=== PATIENT | female | born 1975 | race Caucasian/White ===

== ENCOUNTER 2017-11-11 07:38 | Day surgery (SDC) | payer OTHER, SELFPAY ==
[2017-11-10 09:48] VITALS: BMI 40.7
[2017-11-11] VITALS (7 sets, daily range): BP systolic 103–117; BP diastolic 62–70; PULSE 57–95; RESP 18; TEMP 36.4–37.3; O2SAT 97–98
[2017-11-11 08:10] LABS: Urine Pregnancy, HCG Qual. Negative (Negative)
--- NOTE | 2017-11-11 08:20 | P.PCN_ITS ---
[facility] Procedure Note Procedure Note:: Colonoscopy Procedure Report: Colonoscopy Endoscopist: Pernell Cuellar II, MD Referring physician: Marcela Bauman MD Date of Procedure: November 11, 2017 Equipment: Olympus 180 variable stiffness pediatric colonoscope Sedation: MAC sedation Indication: Mrs. Rocha is a 42-year-old female who is here for diagnostic colonoscopy due to iron deficiency anemia. She has started iron infusions. She is being followed by hematology at the [facility]. He has had bone marrow biopsy and have not determined in the etiology of her anemia. She does have some heavier menstruation. The patient's recent blood work from September 17, 2017 showed hemoglobin 7.6 and hematocrit 27.2. She has had a previous splenectomy and her platelet count was 1,531,000. The patient reports no bright red rectal bleeding, hematochezia or melena. She reports no anticoagulation or NSAIDs. She was previously on NSAIDs but quit taking these many months ago. The patient reports no abdominal pain, weight loss change in her bowel habits. She reports that her maternal first cousin had colon cancer around the age of 50. Procedure: Prior to the procedure, a history and physical exam was performed, and patient' s medications and allergies were reviewed. The risks, benefits and alternatives of the sedation and procedure were discussed with the patient. All questions were answered and informed consent was obtained. The patient was brought to the procedure room. Patient identification and proposed procedure were verified by the physician and the nurse. The patient was placed in a left lateral decubitus position and the scope was passed under direct vision. Throughout the procedure, the patient's blood pressure, pulse, and oxygen saturations were monitored continuously. The colonoscopy was accomplished without difficulty. The patient tolerated the procedure well. Findings: On digital rectal examination there was normal rectal tone. There were no external hemorrhoids. The colonoscope was introduced through the anal canal to the rectum and advanced to the cecum. The ileocecal valve and appendiceal orifice were identified. The scope was advanced a short distance into the ileum which appeared grossly normal. The scope was then withdrawn into the colon. The cecum, ascending and transverse colon and mucosa were grossly normal. There were scattered diverticuli throughout the descending and sigmoid colon (LEFT colon). The rectum itself was normal. Upon retroflexion within the rectum there were grade 1 internal hemorrhoids. Impression: 1. Left-sided diverticulosis 2. Grade 1 internal hemorrhoids Plan: If this is deemed to be iron deficiency anemia, it is not a bone marrow or even hematology issue. It is either chronic gastrointestinal or other blood loss versus poor iron absorption. I will obtain Hemoccult testing. If the patient is Hemoccult positive I would consider upper endoscopy and possibly video capsule enteroscopy. Iron is absorbed in the duodenum and celiac disease is a common cause of iron deficiency anemia. I will obtain celiac serologies as well. I will discuss the findings with the patient and family. I would encourage fiber supplementation on a long-term daily maintenance basis.
--- NOTE | 2017-11-11 14:48 | P.PN_ITS ---
[facility] Anesthesia Checklist - Patient Identification Patient Identification: Arm Band - Structural Data Admitted From: Home Planned Operative Procedure/s: colonoscopy Consent for Planned Operative Procedure(s) Verified: Yes Verified Documents: Surgical Consent, History and Physical - NPO Status Verified Time NPO: 00:00 - Additional verifications Anesthesia Reactions: No - Airway Assessment C-Spine Mobility Assessed: Yes (mp2) TMJ Mobility Assessed: Yes - Neurological Assessment Level of Consciousness: Awake, Alert - Anesthesia Plan Anesthesia Risk discussed: Yes Anesthesia Plan: Verified ASA Class: II Anesthesia Type: MAC [facility] Anesthesia HX Medical History: Reports:: Hypertension Denies:: Diabetes Mellitus Type 1, Diabetes Mellitus Type 2, Internal Pacemaker, Lung Disease, Seizures Other Surgeries: No: Pacemaker
[2017-11-12 18:36] LABS: Deamidated Gliadin Abs, IgA 5 units (0-19); Deamidated Gliadin Abs, IgG 2 units (0-19); Tissue Transglutaminase IgA Ab <2 U/mL (0-3); Tissue Transglutaminase IgG Ab <2 U/mL (0-5)
[2017-11-15 06:06] LABS: Endomysial IgA Antibody Negative (Negative)
[2017-11-16 10:24] LABS: Reticulin IgA Antibody Negative titer (Neg:<1:2.5)
== END 2017-11-11 09:39 | disposition home or self-care (01) ==
LOC: OUTP 07:39
PROVIDERS: PCP Family Medicine; Visit Provider Internal Medicine Gastroenterology
PROC: 0DJD8ZZ Inspection of Lower Intestinal Tract, Via Natural or Artificial Opening Endoscopic (ICD-10-PCS; CPT 45378; principal; 2017-11-11 08:30)
DX: D50.9 Iron deficiency anemia, unspecified (principal); K57.30 Diverticulosis of large intestine without perforation or abscess without bleeding; K64.0 First degree hemorrhoids
CPT/HCPCS: 45378; 36415; 81025; 83516; 86255; 86256

== ENCOUNTER → 2018-06-20 14:51 | Outpatient (CLI) | payer OTHER, SELFPAY ==
[2018-06-20 15:44] LABS: Reticulocyte % (Auto) 2.2 % (0.9-3.2)
[2018-06-20 17:00] LABS: Alanine Aminotransferase 49 U/L (12-78); Albumin Level 3.5 gm/dL (3.4-5.0); Albumin/Globulin Ratio 0.8 (1.1-1.8); Alkaline Phosphatase 152 U/L (46-116); Anion Gap 11.5 mEq/L (5-15); Aspartate Amino Transferase 28 U/L (15-37); Bilirubin,Total 0.2 mg/dL (0.2-1.0); Blood Urea Nitrogen 11 mg/dL (7-18); Calcium 9.7 mg/dL (8.5-10.1); Carbon Dioxide 29 mmol/L (21.0-32.0); Chloride 102 mmol/L (98-107); Creatinine,Serum 0.51 mg/dL (0.55-1.02); Estimated Glomerular Filt Rate 134 ml/min (>60); GFR (African American) 162 ML/MIN (>60); Globulin 4.2 gm/dl (1.3-3.2); Glucose 91 mg/dL (74-106); Potassium 4.5 mmoL/L (3.5-5.1); Sodium 138 mmol/L (136-145); Total Protein,Serum 7.7 gm/dL (6.4-8.2)
[2018-06-22 10:15] LABS: Vitamin B12 511 pg/mL (232-1245)
[2018-06-23 09:01] LABS: Antiparietal Cell Antibody 78.6 Units (0.0-20.0)
== END ==
PROVIDERS: PCP Family Medicine; Visit Provider Internal Medicine Gastroenterology
DX: D72.829 Elevated white blood cell count, unspecified (principal); K29.40 Chronic atrophic gastritis without bleeding; D50.9 Iron deficiency anemia, unspecified
CPT/HCPCS: 36415; 80053; 82607; 83516; 85044

== ENCOUNTER → 2018-08-07 13:21 | Outpatient (CLI) | payer OTHER, SELFPAY ==
[2018-08-07 14:35] LABS: Alanine Aminotransferase 42 U/L (12-78); Albumin Level 3.3 gm/dL (3.4-5.0); Albumin/Globulin Ratio 0.8 (1.1-1.8); Alkaline Phosphatase 137 U/L (46-116); Anion Gap 16.3 mEq/L (5-15); Aspartate Amino Transferase 21 U/L (15-37); Bilirubin,Total 0.2 mg/dL (0.2-1.0); Blood Urea Nitrogen 9 mg/dL (7-18); Calcium 8.9 mg/dL (8.5-10.1); Carbon Dioxide 26 mmol/L (21.0-32.0); Chloride 100 mmol/L (98-107); Creatinine,Serum 0.49 mg/dL (0.55-1.02); Estimated Glomerular Filt Rate 139 ml/min (>60); GFR (African American) 168 ML/MIN (>60); Globulin 4.1 gm/dl (1.3-3.2); Potassium 4.3 mmoL/L (3.5-5.1); Sodium 138 mmol/L (136-145); Total Protein,Serum 7.4 gm/dL (6.4-8.2)
[2018-08-07 15:16] LABS: Glucose 106 mg/dL (74-106)
[2018-08-08 10:32] LABS: Vitamin B12 428 pg/mL (232-1245)
[2018-08-09 06:26] LABS: Antiparietal Cell Antibody 74.4 Units (0.0-20.0)
[2018-08-09 14:19] LABS: Saccharomyces cerevisiae, IgA <20.0 Units (0.0-24.9); Saccharomyces cerevisiae, IgG <20.0 Units (0.0-24.9)
== END ==
PROVIDERS: Visit Provider Internal Medicine Gastroenterology
DX: K29.40 Chronic atrophic gastritis without bleeding (principal); D50.9 Iron deficiency anemia, unspecified; D64.9 Anemia, unspecified; D72.829 Elevated white blood cell count, unspecified
CPT/HCPCS: 36415; 80053; 82607; 83516; 85044; 86256; 86671

== ENCOUNTER 2019-10-09 12:42 | Outpatient (CLI) | payer OTHER, SELFPAY ==
[2019-10-09 13:13] VITALS: BP 126/69; PULSE 69; RESP 18; TEMP 36.8; O2SAT 99
[2019-10-09 13:40] VITALS: BP 121/67; PULSE 67; RESP 18; O2SAT 98
== END 2019-10-09 13:40 | disposition home or self-care (01) ==
LOC: INF 12:46
PROVIDERS: PCP Family Medicine; Visit Provider Nurse Practitioner Family
DX: K29.40 Chronic atrophic gastritis without bleeding (principal); D50.9 Iron deficiency anemia, unspecified
CPT/HCPCS: 96374; Q0138

== ENCOUNTER 2019-10-17 12:35 | Outpatient (CLI) | payer OTHER, SELFPAY ==
[2019-10-17 13:06] VITALS: BP 121/73; PULSE 73; RESP 18; O2SAT 98
[2019-10-17 13:28] VITALS: BP 125/70; PULSE 74; RESP 18
== END 2019-10-17 13:28 | disposition home or self-care (01) ==
LOC: INF 12:35
PROVIDERS: Visit Provider Nurse Practitioner Family
DX: K29.40 Chronic atrophic gastritis without bleeding (principal); D50.9 Iron deficiency anemia, unspecified
CPT/HCPCS: 96374; Q0138

== ENCOUNTER 2020-05-13 21:33 | Emergency (ER) | payer OTHER, SELFPAY ==
[2020-05-13 21:40] VITALS: BP 152/82; PULSE 73; RESP 16; TEMP 36.6; O2SAT 99; BMI 31.6
--- NOTE | 2020-05-13 21:46 | CT_ITS ---
PROCEDURE: CT HEAD/BRAIN WO CON CLINICAL INDICATION: possible seizure Seizure with collapse COMPARISON: No exams were available for comparison TECHNIQUE: Axial images obtained. All CT scans at the facility use one or more dose reduction, viz: automated exposure control, ma/kV adjustment per patient size (including targeted exams where dose is matched to indication, i.e. head), or iterative reconstruction technique. FINDINGS: No midline shift, mass effect, intracranial hemorrhage, hydrocephalus, or extra-axial fluid collection is evident. The calvarium has an unremarkable appearance. There is partial opacification of the right mastoid sinus. Mild mucosal thickening left maxillary sinus. IMPRESSION: No acute intracranial finding Right mastoid sinus disease Dictated by: Deo Espinoza MD 05/14/2020 03:48 Deo Espinoza MD in [place] 05/14/2020 03:48
--- NOTE | 2020-05-13 21:52 | ECG_ITS ---
APPROVED REPORT Exam: Resting ECG HR:62 bpm ECG Measurements Heart Rate 62 AXES MS 172 P 10 QRSd 82 QRS 59 QT 386 T 42 QTc 391 <Conclusion> Normal sinus rhythm Low voltage QRS Borderline ECG Electronically signed by : Rajesh Eduardo, 05/15/2020 18:00:15
--- NOTE | 2020-05-13 22:23 | HMH.EDSEIZ ---
ED Disposition Clinical Impression: Generalized seizure Disposition: Home, Self-Care Condition on Discharge: Fair Instructions: DI for Seizure Disorder -- Adult, DI for Seizure (Not Epilepsy/Seizure Disorder), DI for Seizure Disorder -- Child Additional Instructions: Your labs show that you have elevated white blood cell count of 20.7 please note that you had a elevated white blood cell count previously also in November and again the reason for that elevation is unknown; You had a mild hypokalemia today and we have treated you with potassium; CT of the head is normal; I spoke to Dr. Moreira at [facility] neurology and he has advised that the patient does not need to be placed on any anti seizure medications at this time however he advised that she should be advised seizure precautions which include 90 days of no driving as well as advised that she should not be left alone where there is danger to herself or others ; a phone number has been given for follow-up and that is [phone] Referrals: Esther Bauman [Primary Care Provider] - Time of Disposition: 23:54 - Critical Care Critical Care Time: No Attestation: On 05/13/20, the high probability of a clinically significant, sudden or life threatening deterioration of the following system(s) required my full and direct attention, intervention and personal management. The time I documented below is in addition to time spent performing reported procedures but includes the following listed in this critical care notation. Medical Decision Making - Medical Records Medical records reviewed: Yes: I reviewed the patient's medical records. MR Comment: Patient brought in by EMS. with complains that she had a possible seizure. Patient reports she used to have seizures when she was young but hasnt had one in many years, does not take any seizure medication. She had a possible seizure about 6 months ago and was evaluated and again no findings were noted at that time and she is currently not on any seizure medications no other significant medical problems and does not drink alcohol or take drugs on a regular basis.States that she had done some mowing along with other family members and was eating dinner at which time she apparently passed out and was found on the floor; family members think she had a seizure. Exact nature of seizure if she had one is unknown. Patient's labs and they are as follows she is slightly elevated white blood cell count of 20.7 please note that she had a elevated white blood cell count previously also in November and again the reason for that elevation is unknown she has a mild hypokalemia today and we have treated her with potassium CT of the head is normal I spoke to Dr. Moreira at [facility] neurology and he is advised that the patient does not need to be placed on any antiseizure medications at this time however he advised that she should be advised seizure precautions which include 90 days of no driving as well as advised that she should not be left alone where there is danger to herself or others a phone number has been given for follow-up and that is [phone] - Harinder Inquiry Pt receiving controlled substance: No Vital Signs: 05/13/20 21:40 05/13/20 22:24 05/13/20 23:00 Temperature 97.9 F Temperature Source Oral Pulse Rate [Right Brachial] 73 65 60 Respiratory Rate 16 17 Blood Pressure [Right Arm] 152/82 H 116/73 117/70 Blood Pressure Mean [Right Arm] 105 87 85 Blood Pressure Source [Right Arm] Automatic Cuff Manual Cuff/ Doppler Automatic Cuff Blood Pressure Position [Right Arm] Sitting Sitting Sitting 02 Sat by Pulse Oximetry 99 97 96 Oxygen Delivery Method Room Air Room Air Room Air 05/13/20 23:30 Temperature Temperature Source Pulse Rate [Right Brachial] 63 Respiratory Rate 16 Blood Pressure [Right Arm] 114/68 Blood Pressure Mean [Right Arm] 83 Blood Pressure Source [Right Arm] Automatic Cuff Blood Pressure Position [Right Arm] Sitti
[2020-05-13 22:24] VITALS: BP 116/73; PULSE 65; O2SAT 97
[2020-05-13 22:28] LABS: Basophils # 0.2 K/mm3 (0-0.2); Basophils % 0.8 % (0.1-2.0); Eosinophils # 0.9 K/mm3 (0.0-0.4); Eosinophils % 4.5 % (0.1-12.0); Hematocrit 38.7 % (37.0-47.0); Lymphocytes # 3.1 K/mm3 (0.7-4.5); Mean Corpuscular HGB Conc 33.6 g/dL (31.8-35.4); Mean Corpuscular Volume 86.2 fl (81-99); Mean Platelet Volume 7.8 fl (7.4-10.4); Monocytes # 0.9 K/mm3 (0.1-1.0); Monocytes % 4.4 % (1.7-9.3); Neutrophils # 15.5 K/mm3 (1.8-7.8); Neutrophils % 75.3 % (37.0-80.0); Platelet Count 573 K/mm3 (142-424); Red Blood Count 4.49 M/mm3 (4.20-5.40); Red Cell Distribution Width 14.2 % (11.5-17.5); White Blood Count 20.6 K/mm3 (4.8-10.8)
[2020-05-13 22:30] LABS: Chloride 104 mmol/L (98-107); Potassium 3.3 mmoL/L (3.5-5.1); Sodium 141 mmol/L (136-145)
[2020-05-13 22:33] LABS: Alanine Aminotransferase 31 U/L (12-78); Albumin Level 4.1 g/dl (3.5-5.0); Albumin/Globulin Ratio 1.2 (1.1-1.8); Alkaline Phosphatase 126 U/L (38-126); Anion Gap 11.3 mEq/L (5-15); Aspartate Amino Transferase 31 U/L (14-36); Bilirubin,Total 0.2 mg/dl (0.2-1.3); Blood Urea Nitrogen 11 mg/dl (7-17); Carbon Dioxide 29 mmol/L (22.0-30.0); Creatinine Clearance Estimated 157 mL/min (50-200); Estimated Glomerular Filt Rate 110 ml/min (>60); GFR (African American) 133 ML/MIN (>60); Globulin 3.5 g/dL (1.3-3.2); Total Protein,Serum 7.6 g/dl (6.3-8.2)
[2020-05-13 22:34] LABS: Calcium 9.5 mg/dl (8.4-10.2); Glucose 109 mg/dl (74-100)
[2020-05-13 22:36] LABS: MANUAL DIFFERENTIAL MANUAL DIFFERENTIAL (MANUAL DIFF)
[2020-05-13 22:52] LABS: Microscopic, Urine URINE MICROSCOPIC (MICROSCOPIC)
[2020-05-13 22:54] LABS: Appearance,Urine CLEAR (Clear); Bilirubin,Urine Negative (Negative); Blood, Urine 2+ (Negative); Color,Urine YELLOW (Yellow); Glucose,Urine (UA) Negative (Negative); Ketones,Urine TRACE (Negative); Leukocyte Esterase,Urine Negative (Negative); Nitrate,Urine Negative (Negative); Protein,Urine TRACE (Negative); Specific Gravity, Urine 1.025 (1.005-1.030); Urobilinogen,Urine 0.2 EU/dl (0.2)
[2020-05-13 23:00] VITALS: BP 117/70; PULSE 60; RESP 17; O2SAT 96
[2020-05-13 23:01] LABS: Amorphous Sediment,Urine 1+ /lpf; Bacteria,Urine 1+ /lpf; Mucus,Urine 1+ /lpf
[2020-05-13 23:03] LABS: Eosinophils % 3 % (0-3); Lymphocytes % 14 % (10-50); Monocytes % 4 % (2-9); Neutrophils % 79 % (42-76); Platelet Estimate Normal; Total Cells Counted 100
[2020-05-13 23:04] LABS: Stomatocytes 1+
[2020-05-13 23:12] LABS: Barbiturates Screen,Urine Negative ng/ml (<200)
[2020-05-13 23:13] LABS: Amphetamine/Metha Screen,Urine Negative ng/ml (<1000); Benzodiazepines Screen,Urine Negative ng/ml (<200)
[2020-05-13 23:14] LABS: Cannabinoid Screen,Urine Negative ng/ml (<50)
[2020-05-13 23:15] LABS: Cocaine Screen,Urine Negative ng/ml (<300); Methadone Screen,Urine Negative ng/ml (<300)
[2020-05-13 23:16] LABS: Opiate Screen,Urine Negative ng/ml (<300); Phencyclidine Screen,Urine Negative ng/ml (<25)
[2020-05-13 23:30] VITALS: BP 114/68; PULSE 63; RESP 16; O2SAT 97
--- NOTE | 2020-05-13 23:41 | PC.NURSE ---
speaking to Dr Moreira at [facility]
[2020-05-13 23:57] VITALS: BP 107/73; PULSE 67; RESP 16; TEMP 36.6; O2SAT 96
== END 2020-05-14 00:05 | disposition home or self-care (01) ==
PROVIDERS: Family Medicine; Emergency Provider Emergency Medicine; PCP Family Medicine
DX: R56.9 Unspecified convulsions (principal); I10 Essential (primary) hypertension; Z79.899 Other long term (current) drug therapy
CPT/HCPCS: 70450; 80053; 80305; 81001; 85007; 85025; 93005; 96365; 99284

== ENCOUNTER → 2020-05-27 08:51 | Outpatient (CLI) | payer OTHER, SELFPAY ==
--- NOTE | 2020-05-27 08:51 | MR_ITS ---
PROCEDURE: MR HEAD/BRAIN WO/W CON CLINICAL INDICATION: new onset seizures PT STATES SHE HAD A POSSIBLE SEIZURE ON 05/13/20. PT STATES SHE HAS NEVER HAD PREVIOUS EPISODES LIKE THIS. PRIOR CT BRAIN DONE 05/13/20 COMPARISON: CT CT HEAD/BRAIN WO CON from 05/13/2020 TECHNIQUE: Routine multiplanar multi echo sequences are performed without gadolinium enhancement. FINDINGS: No midline shift, mass effect, intracranial hemorrhage, or hydrocephalus is evident. No evidence of acute infarction. The cerebellopontine angles, cerebellum, and brainstem have an unremarkable appearance. No abnormal T2 white matter hyperintensities. The sella is enlarged measuring 15 mm AP and 12 mm transverse having CSF signal intensity with flattening of the pituitary inferiorly. This may only represent a prominent partial empty sella. A cystic lesion however is not excluded and follow-up is suggested. There is no significant mass effect upon the optic chiasm. No abnormal enhancement is apparent. The corpus callosum and craniocervical junction have an unremarkable appearance. No enhancing lesions are evident. There is near complete opacification of the right mastoid sinus with only minimal aeration superiorly. Retention cysts are present in the floor the left maxillary sinus and also in the floor the right maxillary sinus. IMPRESSION: 1. No acute intracranial findings. 2. Enlarged sella with cystic changes. This may only represent a partial empty sella. A cystic lesion however is not completely excluded. Recommend 3 month follow-up with pituitary protocol without and with gadolinium enhancement to confirm short term stability 3. Right mastoid sinus disease Dictated by: Deo Espinoza MD 05/28/2020 12:25 Deo Espinoza MD in [place] 05/28/2020 12:25
== END ==
LOC: RAD 08:51
PROVIDERS: PCP Family Medicine; Visit Provider Specialist
DX: D47.3 Essential (hemorrhagic) thrombocythemia (principal); D72.829 Elevated white blood cell count, unspecified; G40.909 Epilepsy, unspecified, not intractable, without status epilepticus
CPT/HCPCS: 70553; A9576

== ENCOUNTER → 2020-06-12 07:50 | Outpatient (CLI) | payer OTHER, SELFPAY ==
[2020-06-12 10:31] LABS: Basophils # 0.1 K/mm3 (0-0.2); Basophils % 1.1 % (0.1-2.0); Eosinophils # 0.6 K/mm3 (0.0-0.4); Eosinophils % 5.5 % (0.1-12.0); Hematocrit 42.8 % (37.0-47.0); Hemoglobin 13.6 g/dL (12.2-16.2); Lymphocytes # 3.1 K/mm3 (0.7-4.5); Lymphocytes % 26.9 % (10-50); Mean Corpuscular HGB Conc 31.8 g/dL (31.8-35.4); Mean Corpuscular Hemoglobin 28.1 pg (27.0-31.2); Mean Corpuscular Volume 88.2 fl (81-99); Mean Platelet Volume 8.9 fl (7.4-10.4); Monocytes # 0.8 K/mm3 (0.1-1.0); Monocytes % 6.5 % (1.7-9.3); Neutrophils # 6.9 K/mm3 (1.8-7.8); Neutrophils % 59.9 % (37.0-80.0); Platelet Count 759 K/mm3 (142-424); Red Blood Count 4.85 M/mm3 (4.20-5.40); Red Cell Distribution Width 14.5 % (11.5-17.5); White Blood Count 11.5 K/mm3 (4.8-10.8)
[2020-06-12 11:54] LABS: Alanine Aminotransferase 24 U/L (12-78); Albumin Level 4.8 g/dl (3.5-5.0); Albumin/Globulin Ratio 1.3 (1.1-1.8); Alkaline Phosphatase 138 U/L (38-126); Anion Gap 12.6 mEq/L (5-15); Aspartate Amino Transferase 29 U/L (14-36); Bilirubin,Total 0.4 mg/dl (0.2-1.3); Blood Urea Nitrogen 11 mg/dl (7-17); Calcium 10.3 mg/dl (8.4-10.2); Carbon Dioxide 30 mmol/L (22.0-30.0); Chloride 100 mmol/L (98-107); Estimated Glomerular Filt Rate 135 ml/min (>60); GFR (African American) 164 ML/MIN (>60); Globulin 3.6 g/dL (1.3-3.2); Glucose 82 mg/dl (74-100); Potassium 4.6 mmoL/L (3.5-5.1); Sodium 138 mmol/L (136-145); Total Protein,Serum 8.4 g/dl (6.3-8.2)
[2020-06-12 13:01] LABS: Vitamin B12 469 pg/mL (239-931)
[2020-06-12 13:54] LABS: Folate > 20.00 ng/mL
[2020-06-12 16:58] LABS: Iron 125 ug/dL (37-170)
[2020-06-12 17:08] LABS: Total Iron Binding Capacity 448 ug/dL (265-497)
== END ==
LOC: RT 07:52
PROVIDERS: Internal Medicine Medical Oncology; PCP Family Medicine; Visit Provider Nurse Practitioner Family
DX: D72.9 Disorder of white blood cells, unspecified (principal)
CPT/HCPCS: 36415; 80053; 81206; 81270; 82607; 82728; 82746; 83540; 83550; 85025; 93225; 93226

== ENCOUNTER 2020-08-22 12:46 | Emergency (ER) | payer OTHER, SELFPAY ==
[2020-08-22 12:52] VITALS: BP 123/72; PULSE 89; RESP 18; TEMP 36.6; O2SAT 99; BMI 35.0
--- NOTE | 2020-08-22 12:57 | CT_ITS ---
PROCEDURE: CT HEAD/BRAIN WO CON CLINICAL INDICATION: seizure Seizure disorder, near syncope COMPARISON: CT CT HEAD/BRAIN WO CON from 05/13/2020 TECHNIQUE: Axial images obtained. All CT scans at the facility use one or more dose reduction, viz: automated exposure control, ma/kV adjustment per patient size (including targeted exams where dose is matched to indication, i.e. head), or iterative reconstruction technique. FINDINGS: No midline shift, mass effect, intracranial hemorrhage, hydrocephalus, or extra-axial fluid collection is evident. The calvarium has an unremarkable appearance. There is opacified right mastoid sinus no sinus air-fluid level. IMPRESSION: 1. No acute intracranial findings. 2. Right mastoid sinus disease Dictated by: Deo Espinoza MD 08/22/2020 13:21 Deo Espinoza MD in [place] 08/22/2020 13:21
--- NOTE | 2020-08-22 13:04 | PC.NURSE ---
pt to rad
[2020-08-22 13:27] LABS: Basophils # 0.1 K/mm3 (0-0.2); Basophils % 0.7 % (0.1-2.0); Eosinophils # 0.7 K/mm3 (0.0-0.4); Eosinophils % 3.7 % (0.1-12.0); Hematocrit 41.7 % (37.0-47.0); Hemoglobin 12.7 g/dL (12.2-16.2); Lymphocytes # 2.7 K/mm3 (0.7-4.5); Mean Corpuscular HGB Conc 30.5 g/dL (31.8-35.4); Mean Corpuscular Hemoglobin 26.8 pg (27.0-31.2); Mean Corpuscular Volume 88.1 fl (81-99); Mean Platelet Volume 8.4 fl (7.4-10.4); Monocytes % 5.1 % (1.7-9.3); Neutrophils # 14.8 K/mm3 (1.8-7.8); Neutrophils % 76.5 % (37.0-80.0); Platelet Count 791 K/mm3 (142-424); Red Blood Count 4.73 M/mm3 (4.20-5.40); Red Cell Distribution Width 13.6 % (11.5-17.5); White Blood Count 19.4 K/mm3 (4.8-10.8)
[2020-08-22 13:29] LABS: MANUAL DIFFERENTIAL MANUAL DIFFERENTIAL (MANUAL DIFF)
[2020-08-22 13:31] LABS: Chloride 101 mmol/L (98-107); Potassium 4.1 mmoL/L (3.5-5.1); Sodium 137 mmol/L (136-145)
[2020-08-22 13:34] LABS: Alanine Aminotransferase 39 U/L (12-78); Albumin/Globulin Ratio 1.2 (1.1-1.8); Alkaline Phosphatase 135 U/L (38-126); Anion Gap 12.1 mEq/L (5-15); Aspartate Amino Transferase 43 U/L (14-36); Bilirubin,Total 0.3 mg/dl (0.2-1.3); Blood Urea Nitrogen 19 mg/dl (7-17); Carbon Dioxide 28 mmol/L (22.0-30.0); Creatinine Clearance Estimated 114 mL/min (50-200); Estimated Glomerular Filt Rate 68 ml/min (>60); GFR (African American) 83 ML/MIN (>60); Globulin 4.2 g/dL (1.3-3.2); Total Protein,Serum 9.2 g/dl (6.3-8.2)
[2020-08-22 13:35] LABS: Calcium 9.9 mg/dl (8.4-10.2); Glucose 94 mg/dl (74-100)
[2020-08-22 13:36] LABS: Eosinophils % 3 % (0-3); Lymphocytes % 13 % (10-50); Monocytes % 5 % (2-9); Neutrophils % 79 % (42-76); Platelet Estimate Marked Increase; RBC Morphology Normal; Total Cells Counted 100
--- NOTE | 2020-08-22 13:48 | HMH.EDSEIZ ---
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, History of splenectomy Epileptic seizure Qualifiers: Epilepsy type: unspecified Intractability: not intractable Status epilepticus: without status epilepticus Qualified Code(s): G40.909 - Epilepsy, unspecified, not intractable, without status epilepticus Disposition: Home, Self-Care Condition on Discharge: Good Instructions: DI for Seizure Disorder -- Adult Additional Instructions: follow up with pcp for follow up and neuro Referrals: Esther Bauman [Primary Care Provider] - - Critical Care Critical Care Time: No Attestation: On 08/22/20, the high probability of a clinically significant, sudden or life threatening deterioration of the following system(s) required my full and direct attention, intervention and personal management. The time I documented below is in addition to time spent performing reported procedures but includes the following listed in this critical care notation. Medical Decision Making - Medical Records Medical records reviewed: Yes: I reviewed the patient's medical records. - Harinder Inquiry Pt receiving controlled substance: No Vital Signs: 08/22/20 12:52 08/22/20 14:09 Temperature 97.9 F Temperature Source Oral Pulse Rate [Radial] 89 79 Respiratory Rate 18 Blood Pressure [Right Arm] 123/72 104/58 L Blood Pressure Mean [Right Arm] 89 73 Blood Pressure Source [Right Arm] Automatic Cuff Automatic Cuff Blood Pressure Position [Right Arm] Sitting Sitting 02 Sat by Pulse Oximetry 99 99 Oxygen Delivery Method Room Air Room Air - Lab Data Lab results reviewed: Yes: I reviewed the patient's lab results. Lab Results 08/22/20 13:03: WBC 19.4 H, RBC 4.73, Hgb 12.7, Hct 41.7, MCV 88.1, MCH 26.8 L, MCHC 30.5 L, RDW 13.6, Plt Count 791 H, MPV 8.4, Neut % (Auto) 76.5, Lymph % (Auto) 14.0, Hardin % (Auto) 5.1, Eos % (Auto) 3.7, Baso % (Auto) 0.7, Neut # (Auto) 14.8 H, Lymph # (Auto) 2.7, Hardin # (Auto) 1.0, Eos # (Auto) 0.7 H, Baso # (Auto) 0.1, Total Counted 100, Neutrophils % (Manual) 79 H, Lymphocytes % (Manual) 13, Monocytes % (Manual) 5, Eosinophils % (Manual) 3, Platelet Estimate Marked increase, RBC Morphology Normal 08/22/20 13:03: Sodium 137, Potassium 4.1, Chloride 101, Carbon Dioxide 28, Anion Gap 12.1, BUN 19 H, Creatinine 0.90, Estimated Creat Clear 114, Estimated GFR 68, Est GFR ( Amer) 83, Glucose 94, Calcium 9.9, Total Bilirubin 0.3, AST 43 H, ALT 39, Alkaline Phosphatase 135 H, Total Protein 9.2 H, Albumin 5.0, Globulin 4.2 H, Albumin/Globulin Ratio 1.2 08/22/20 13:30: C-Reactive Protein 7.7 H Result diagrams: 08/22/20 13:03 08/22/20 13:03 Orders (Tests/Meds): ORDERS Category Date Time Status ESR [Erythrocyte Sedimentation Rate] Stat Lab 08/22/20 13:03 Received Peripheral Smear Review Routine Lab 08/22/20 14:10 Ordered Urinalysis and Microscopic Stat Lab 08/22/20 13:56 Received - CT Data CT Scan: Head Time Received: 14:[address] Reviewed: Yes: I have viewed the radiologist's interpretation Preliminary Findings: Normal/NAD - Reevaluation(s) Time: 14:16 Reevaluation #1: doing better Medical Decision Narrative: will ask pt to resume meds and call pcp and neuro - has persistent elevated plt and wbc will ask pt to discuss with pcp - Seizures HPI - General Chief Complaint: Seizure Stated Complaint: Syncope Time Seen by Provider: 08/22/20 13:48 Mode of Arrival: Ambulatory Source of Information: Patient, Relative, Medical Record Limitations: No Limitations Description of Symptoms (Recalled from ER Triage Doc. by RN): States that she has not taken her seizure medication in a couple of days because she just forgot. Thinks she had a seizure this morning. Having trouble with memory and her tongue is numb. - History of Present Illness HPI Narrative: has episodes which are thought to be sz and has stopped her meds sec to side effects but did ok as far as sz complaint: possibl
[2020-08-22 14:09] VITALS: BP 104/58; PULSE 79; O2SAT 99
[2020-08-22 14:16] LABS: C-Reactive Protein 7.7 mg/L (0-4)
[2020-08-22 14:21] LABS: Microscopic, Urine URINE MICROSCOPIC (MICROSCOPIC)
[2020-08-22 14:27] LABS: Erythrocyte Sedimentation Rate 19 mm/hr (0-20)
[2020-08-22 14:27] LABS: Appearance,Urine CLEAR (Clear); Bilirubin,Urine Negative (Negative); Blood, Urine 2+ (Negative); Color,Urine YELLOW (Yellow); Glucose,Urine (UA) Negative (Negative); Ketones,Urine TRACE (Negative); Leukocyte Esterase,Urine TRACE (Negative); Nitrate,Urine Negative (Negative); Protein,Urine Negative (Negative); Urobilinogen,Urine 0.2 EU/dl (0.2)
[2020-08-22 14:32] VITALS: BP 100/63; PULSE 78; RESP 16; TEMP 36.6; O2SAT 98
[2020-08-22 14:36] LABS: WBC,Urine Occasional #/hpf (0-3)
[2020-08-24 14:30] LABS: Peripheral Smear Review Scanned Result
== END 2020-08-22 14:33 | disposition home or self-care (01) ==
PROVIDERS: Emergency Provider Emergency Medicine; PCP Family Medicine
DX: D47.3 Essential (hemorrhagic) thrombocythemia (principal); R55 Syncope and collapse; Z90.81 Acquired absence of spleen; I10 Essential (primary) hypertension; G40.909 Epilepsy, unspecified, not intractable, without status epilepticus; F17.210 Nicotine dependence, cigarettes, uncomplicated
CPT/HCPCS: 70450; 80053; 81001; 85007; 85025; 85651; 86140; 99283

== ENCOUNTER → 2020-09-16 08:33 | Outpatient (CLI) | payer BC, SELFPAY ==
--- NOTE | 2020-09-16 08:33 | MR_ITS ---
PROCEDURE: MR HEAD/BRAIN WO/W CON CLINICAL INDICATION: abnormal MRI Brain 3 month follow-up mri, seizures. 18ML PROHANCE INJECTED LOT:[id number] EXP:NOV 2022 COMPARISON: MR MR HEAD/BRAIN WO/W CON from 05/27/2020 TECHNIQUE: Routine multiplanar multi echo sequences are performed without and with gadolinium enhancement with pituitary protocol with dynamic post enhanced images thin-section.. FINDINGS: No midline shift or mass effect is evident. No evidence of acute infarction. No enhancing lesions are evident. The cerebellopontine angle, cerebellum, and brainstem have an unremarkable appearance. The pituitary fossa is once again noted to be enlarged. There is a question of a cystic lesion of the pituitary. Dynamic post enhanced images are performed by thin sections of the pituitary fossa the pituitary stalk is not deviated. The pituitary fossa is prominent but there is no abnormal enhancement that would indicate an underlying cystic lesion. No enhancing lesions are apparent. Pituitary tissue is effaced along the inferior aspect of the pituitary fossa. There is right mastoid sinus effusion. There are small retention cyst of the maxillary sinuses. IMPRESSION: 1. Centrally negative MRI of the brain. 2. Partial empty sella. No pituitary lesion apparent. 3. Right mastoid effusion Dictated by: Deo Espinoza MD 09/17/2020 13:43 Deo Espinoza MD in [place] 09/17/2020 13:43
== END ==
LOC: RAD 08:33
PROVIDERS: PCP Family Medicine; Visit Provider Specialist
DX: G40.909 Epilepsy, unspecified, not intractable, without status epilepticus (principal); E23.7 Disorder of pituitary gland, unspecified; R93.0 Abnormal findings on diagnostic imaging of skull and head, not elsewhere classified
CPT/HCPCS: 70553; A9576

== ENCOUNTER → 2020-11-13 16:22 | Outpatient (CLI) | payer BC, SELFPAY ==
[2020-11-13 16:50] LABS: Basophils # 0.1 K/mm3 (0-0.2); Basophils % 0.8 % (0.1-2.0); Eosinophils # 0.6 K/mm3 (0.0-0.4); Eosinophils % 3.4 % (0.1-12.0); Hematocrit 37.5 % (37.0-47.0); Lymphocytes # 3.8 K/mm3 (0.7-4.5); Lymphocytes % 20.6 % (10-50); Mean Corpuscular HGB Conc 31.9 g/dL (31.8-35.4); Mean Corpuscular Hemoglobin 26.3 pg (27.0-31.2); Mean Corpuscular Volume 82.3 fl (81-99); Mean Platelet Volume 8.5 fl (7.4-10.4); Monocytes # 0.7 K/mm3 (0.1-1.0); Monocytes % 4.1 % (1.7-9.3); Neutrophils % 71.1 % (37.0-80.0); Platelet Count 867 K/mm3 (142-424); Red Blood Count 4.56 M/mm3 (4.20-5.40); Red Cell Distribution Width 13.7 % (11.5-17.5); White Blood Count 18.3 K/mm3 (4.8-10.8)
[2020-11-13 16:51] LABS: MANUAL DIFFERENTIAL MANUAL DIFFERENTIAL (MANUAL DIFF)
[2020-11-13 17:14] LABS: Iron 32 ug/dL (37-170)
[2020-11-13 17:24] LABS: Lymphocytes % 32 % (10-50); Monocytes % 8 % (2-9); Neutrophils % 60 % (42-76); Total Cells Counted 100
[2020-11-13 17:25] LABS: Hypochromasia 1+; Platelet Estimate Marked Increase; Total Iron Binding Capacity 482 ug/dL (265-497)
[2020-11-13 17:51] LABS: Ferritin 6.76 ng/ml (6.24-137)
== END ==
PROVIDERS: Visit Provider Nurse Practitioner Family
DX: G25.81 Restless legs syndrome (principal); Z86.2 Personal history of diseases of the blood and blood-forming organs and certain disorders involving the immune mechanism
CPT/HCPCS: 36415; 82728; 83540; 83550; 85007; 85025

== ENCOUNTER 2020-12-10 13:28 | Outpatient (CLI) | payer BC, SELFPAY ==
[2020-12-10 13:55] VITALS: BP 123/72; PULSE 83; RESP 18; TEMP 36.8; O2SAT 100
[2020-12-10 14:30] VITALS: BP 128/72; PULSE 76; RESP 18; O2SAT 99
== END 2020-12-10 14:30 | disposition home or self-care (01) ==
LOC: INF 13:28
PROVIDERS: Visit Provider Internal Medicine Medical Oncology
DX: D50.9 Iron deficiency anemia, unspecified (principal)
CPT/HCPCS: 96365; J1439

== ENCOUNTER → 2020-12-17 13:20 | Outpatient (CLI) | payer BC, SELFPAY ==
[2020-12-17 13:52] VITALS: BP 106/64; PULSE 70; RESP 20; TEMP 36.5; O2SAT 100
[2020-12-17 14:30] VITALS: BP 109/70; PULSE 79; RESP 20; O2SAT 99
== END ==
LOC: INF 13:20
PROVIDERS: Visit Provider Internal Medicine Medical Oncology
DX: D50.9 Iron deficiency anemia, unspecified (principal)
CPT/HCPCS: 96365; J1439

== ENCOUNTER 2021-04-05 11:55 | Emergency (ER) | payer BC, SELFPAY ==
[2021-04-05 12:29] VITALS: BP 111/67; PULSE 85; RESP 18; TEMP 36.6; O2SAT 95; BMI 38.2
--- NOTE | 2021-04-05 12:41 | HMH.EDUTC ---
[facility] Disposition Clinical Impression: Viral syndrome Sinusitis Qualifiers: Sinusitis location: unspecified location Chronicity: acute Recurrence: non-recurrent Qualified Code(s): J01.90 - Acute sinusitis, unspecified Disposition: Home, Self-Care Condition on Discharge: Good Instructions: DI for Viral Syndrome, Preventing the Spread of Coronavirus Discharge Instructions Additional Instructions: Drink plenty of fluids. Take tylenol or ibuprofen for pain or fever. Take the medications as directed. Follow up with your regular doctor. GO TO THE ER FOR ANY WORSENING SYMPTOMS Prescriptions: Ondansetron [Zofran 4mg ODT] 4 mg PO Q8HP PRN #12 tab.rapdis PRN Reason: Nausea Transmission Status: Received by [id number] Azithromycin [Z-Eliseo 250mg Tab*] 250 mg PO UD DOSE PK #6 tab Transmission Status: Received by [id number] Referrals: Esther Bauman [Primary Care Provider] - Forms: Work/School Release Time of Disposition: 13:08 Medical Decision Making - Medical Records Medical records reviewed: No: I reviewed the patient's medical records. - Harinder Inquiry Pt receiving controlled substance: No Vital Signs: 04/05/21 12:29 04/05/21 13:45 Temperature 97.9 F 0 F L Temperature Source Oral Pulse Rate 0 L Pulse Rate [Right Radial] 85 Respiratory Rate 18 0 L Blood Pressure 000/00 L Blood Pressure [Right Arm] 111/67 Blood Pressure Mean [Right Arm] 81 Blood Pressure Source [Right Arm] Automatic Cuff Blood Pressure Position [Right Arm] Sitting 02 Sat by Pulse Oximetry 95 Oxygen Delivery Method Room Air - Lab Data Lab results reviewed: Yes: I reviewed the patient's lab results. [facility] HPI - General Stated complaint: congestion, fever, aches Time Seen by Provider: 04/05/21 12:41 Mode of Arrival: Ambulatory Source of Information: Patient Limitations: No Limitations Description of Symptoms (Recalled from Triage Doc. by RN): C/O MORGAN, chills, cough, nasal congestion HEENT Symptoms (Recalled from RN notes): Yes (MORGAN, nasal congestion) Resp Symptoms (Recalled from RN notes): Yes (cough) Skin Symptoms (Recalled from RN notes): No MS Symptoms (Recalled from RN notes): No Functional Status (Recalled from RN notes): n/a - History of Present Illness Provider Complaint: She states that for the past 2 days she has had chills, body aches, a scratchy sore throat, sinus congestion. She has been vaccinated against covid around 2 months ago. - Related Data Home Medications Medication Instructions Recorded Confirmed Aspirin [Aspir 81] 81 mg PO DAILY 11/10/17 12/17/20 Folic Acid [Folic Acid 1mg tablet] 1 mg PO DAILY 11/10/17 12/17/20 Sertraline HCl [Zoloft 50mg tablet] 50 mg PO DAILY 11/10/17 12/17/20 triamcinolone acetonide 55 mcg 1 spray INTRANASAL DAILY 06/19/20 12/17/20 nasal spray aerosol valsartan 320 1 tab PO DAILY tab 07/17/20 12/17/20 mg-hydrochlorothiazide 12.5 mg tablet levETIRAcetam [Levetiracetam] 1,000 mg PO BID 12/17/20 12/17/20 Previous Rx's Medication Instructions Recorded Azithromycin [Z-Eliseo 250mg Tab*] 250 mg PO UD DOSE PK #6 tab 04/05/21 Ondansetron [Zofran 4mg ODT] 4 mg PO Q8HP PRN #12 tab.rapdis 04/05/21 Allergies Allergy/AdvReac Type Severity Reaction Status Date / Time No Known Allergies Allergy Verified 12/04/20 09:32 - Worker's Comp Is this a Worker's Comp case?: No H History - Hepatitis A Screen Drug use history?: No High risk sexual behaviors?: No History of sexually transmitted infection?: No Currently employed?: No Childcare worker?: No Do you have indoor plumbing?: Yes Do you have electricity?: Yes Attestation statement:: This patient has been screened for Hepatitis A risk factors. I have reviewed the patient's past medical history: Yes Medical History: Reports:: Depression, Hypertension, Migraine, Seizures Denies:: Cancer, Diabetes Mellitus Type 1, Diabetes Mellitus Type 2, Internal Pacemaker, Dory
[2021-04-05 13:45] VITALS: BP 000/00; PULSE 0; RESP 0; TEMP -17.7; TEMP 0
--- NOTE | 2021-04-06 09:13 | PC.NURSE ---
PT NOTIFIED OF POSITIVE COVID TEST RESULTS
[2021-04-08 13:15] LABS: UTC Strep Screen (Rapid) Negative (Negative)
== END 2021-04-05 13:45 | disposition home or self-care (01) ==
PROVIDERS: Emergency Provider Nurse Practitioner Family; PCP Family Medicine
DX: U07.1 COVID-19 (principal); B34.9 Viral infection, unspecified; J01.90 Acute sinusitis, unspecified; I10 Essential (primary) hypertension; F33.1 Major depressive disorder, recurrent, moderate; G43.709 Chronic migraine without aura, not intractable, without status migrainosus
CPT/HCPCS: 87880; 99203; G0463; U0003

== ENCOUNTER 2023-08-11 07:46 | Outpatient (CLI) | payer OTHER, SELFPAY ==
[2023-08-11 08:21] VITALS: BP 120/68; PULSE 82; RESP 18; TEMP 36.6; O2SAT 98
[2023-08-11 09:00] VITALS: BP 108/54; PULSE 79; RESP 18
== END 2023-08-11 09:00 | disposition home or self-care (01) ==
LOC: INF 07:46
PROVIDERS: PCP Family Medicine; Visit Provider Internal Medicine Medical Oncology
DX: D50.9 Iron deficiency anemia, unspecified (principal); T45.4X5A Adverse effect of iron and its compounds, initial encounter
CPT/HCPCS: 96365; J1756

== ENCOUNTER 2023-08-18 07:58 | Outpatient (CLI) | payer OTHER, SELFPAY ==
[2023-08-18 08:20] VITALS: BP 124/64; PULSE 79; RESP 18; O2SAT 99
[2023-08-18 09:00] VITALS: BP 123/83; PULSE 79; RESP 18; O2SAT 100
== END 2023-08-18 09:00 | disposition home or self-care (01) ==
LOC: INF 07:58
PROVIDERS: PCP Family Medicine; Visit Provider Internal Medicine Medical Oncology
DX: D50.0 Iron deficiency anemia secondary to blood loss (chronic) (principal)
CPT/HCPCS: 96365; J1756

== ENCOUNTER 2023-09-09 07:43 | Outpatient (CLI) | payer SELFPAY ==
[2023-09-09 08:25] VITALS: BP 124/76; PULSE 85; RESP 18; O2SAT 98
[2023-09-09] MEDS: IRON SUCROSE COMPLEX 200 MG in 0.9 % SODIUM CHLORIDE 100 ML 220 MG IV (08:25)
[2023-09-09] MEDS: SODIUM CHLORIDE 0.9% 50ML BAG 50 ML IV (08:25)
[2023-09-09 09:16] VITALS: BP 125/70; PULSE 75; RESP 18; O2SAT 100
== END 2023-09-09 09:16 ==
LOC: INF 07:45
PROVIDERS: PCP Family Medicine; Visit Provider Internal Medicine Medical Oncology
DX: D50.0 Iron deficiency anemia secondary to blood loss (chronic) (principal); T45.4X5A Adverse effect of iron and its compounds, initial encounter; Z79.899 Other long term (current) drug therapy
CPT/HCPCS: 96365; J1756

== ENCOUNTER 2025-07-12 08:02 | Outpatient (CLI) | payer BC, SELFPAY ==
--- OUTSIDE RECORDS SUMMARY | 2025-07-12 08:07 | XMS_ITS | Clinical Summary ---
Author Organization [facility] Address [address] [place] [address] Care Team Providers Care Product Test Specialist Name Role Phone Esther Bauman Primary Care Provider +1 [phone] Allergies No known active allergies Social History Tobacco Use Types Packs/Day Years Used Date Smoking Tobacco: Never Assessed Abuse Screen Answer Date Recorded Unsafe at Home or Work/School Not on file Feels Threatened by Someone? Not on file 07/2023 Does Anyone Keep You from Co ntacting Others or Doint Things Outside the Home? Not on file 06/15/2023 Physical Sign of Abuse Present Not on file 1 Housing Stability Answer Date Recorded Current Living Arrangements Not on file 06/05 Potentially Unsafe Housing Conditions Not on april e 06/15/2023 Family and Community Support Answer Shemar e Recorded Help with Day-to-Day Activities Not on file 06/15/2023 Lonely or Isolated Not on file 06/15/2023 Employment Answer Date Recorded Do you want help finding or keeping work or a thierry b? Not on file 06/15/2023 Disabilities Answer Date Recorded Concentrating, Remembering, or Making Decisions Difficulty Not on file 06/15/2023 Doing Errands Independently Difficulty Not on fi le 06/15/2023 Education Answer Date Recorded Help with school or training? Not on file Preferred Language Not on file 06/15/2023 Comments Unknown Sex and Gender Information Value Date Recorded Sex Assigned at Not on file Legal Sex Female 11:22 AM EST Gender Identity Not on file Sexual Orientation Not on file Last Filed Vital Signs Vital Sign Reading Time Taken Comments Blood Pressure - - Pulse 88 08/15/2016 11:46 AM EST Temperature 37.3 C (99.2 F) 08/15/2016 11:46 AM EST Respiratory Rate 16 08/15/2016 11:46 AM EST Oxygen Saturation 98% 08/15/2016 11:46 AM EST Inhaled Oxygen Concentration - - Weight 111 kg (245 lb) 08/15/2016 11:46 AM EST Height 160 cm (5' 3 ) 08/15/2016 11:46 AM EST Body Mass Index 43.4 08/15/2016 11:46 AM EST Plan of Treatment Upcoming Encounters Date Type Department Care Team (Late st Contact Info) Description 11/13/2025 9:00 AM EDT Office Visit [facility] RHEUMATOLOGY [address] [facility] [address] [place] [address] Jacques Cartwright MD [address] [facility] [address] [place] [address] Health Maintenance Due Date Last Done Comments Annual Gynecologic Pelvic an d Breast Exam 1977 TDAP/TD VACCINES (1 - Tdap) 1996 MAMMOGRAM 2017 COLOGUARD 2022 COLON CANCER SCREENING 5 YEA R SIGMOIDOSCOPY 2022 COLONOSCOPY 2022 [address]ECTAL CANCER SCREENING 2022 CT COLONOGRAPHY 2022 FECAL OCCULT BLOOD TEST 2022 FIT Testing (1 year) 2022 ANNUAL PHYSICAL 07/24/2024 HEPATITIS C SCREENING 07/24/2024 INFLUENZA VACCINE 04/05/2025 Pneumococcal Vaccine 0-49 Aged Out No longer eligible based on patient's age to complete this topic Insurance [facility] PPO Care Teams Product Test Specialist Relationship Specialty Start Date End Date Esther Bauman DO [address] [place] [address] PCP - General Family Medicine 03/15/24
--- OUTSIDE RECORDS SUMMARY | 2025-07-12 08:07 | XMS_ITS | Data Portability ---
Author Organization [facility] Address [address] [facility] [address] [place] [address] Assessment No assessment recorded. Plan of Treatment Reminders Order Date Submit Date Provider Last Modified By Organization Details Last Modified Time Details Appointments None recorded. Lab None recorded. Referral None recorded. Procedures None recorded. Surgeries None recorded. Imaging None recorded. Medication Orders dexamethas one sodium phosphate 10 mg/mL injection solution 2017 018 rvanmetre Not available 8 12:46:16 Patient TargetsNo targets recorded. Patient Instructions Encounter Date Encounter Id Patient Instructions Last Modified By Organization Details Last Modified Time 08/02/2018 [id number] eustachian tube problems: care instructions rvanmetre Not available 08/02/2018 12:46:16 rhinitis: care instructions rvanmetre Not available 08/02/2018 12:46:16 1. Audiogram obtained; reviewed 2. Administer dexamethasone 3. Instruct to use Afrin 4. Discuss placement of right paparella tube; Full risks, complications, and benefits of operative versus non-operative intervention have been thoroughly discussed. Understanding was expressed, informed consent given, and we will proceed with the discussed in office treatment plan. There were no questions for me at the end of the office visit. 5. F/U 4 weeks asalva Not available 08/02/2018 11:56:18 right otalgia an d eustachian tube dysfunction; will try conservative treatment with decadron today and prn afrin along with autoinsufflating ears; follow up in four weeks and if no better then will need to consider myringotomy tube placement rvanmetre Not available 08/02/2018 12:06:59 Reason for Referral None Reported. Results Created Date Observation Date Name Description Value Unit Range Abnormal Flag Note LastModifiedBy Organization Detail LastModifiedTime 08/03/20 18 08/02/2018 audio gram No observ ation record ed. BARCODE Not Available 2017 10:25:52 Result Notes None recorded. Problems No Known Problems Procedures Surgical History Date Name Laterality Status Provider Name and Address Organization Details Recorded Time 8 Tympanogram completed JENNY RIDDLE, AUD [address] [place], [address], [facility] 08/02/2018 11:37:40 8 Audiogram completed JENNY RIDDLE, AUD [address] [place], [address], [facility] 08/02/2018 11:37:39 8 Audiogram completed Julienantonyarlin Crokoa [facility] 08/02/2018 11:51:35 splenectomy completed Aliza Smith [facility] 08/02/2018 11:10:59 Imaging Results None recorded. Procedure Notes None recorded. Medical Equipment None Reported. Allergies No known drug allergies Medications Name Sig Start Date Stop Date Status Note LastModified by Organization Details LastModified Time amoxicillin 500 mg capsule active Not Available Not Available Not Available promethazin e-DM 6.25 mg-15 mg/5 mL oral syrup active Not Available Not Available Not Available fluconazole 150 mg tablet 08/02 completed Not Available Not Available Not Available sumatriptan 50 mg tablet 08/02 completed Not Available Not Available Not Available aspirin 81 mg tablet,alex yed release 08/02 completed Not Available Not Available Not Available dicyclomine 20 mg tablet active Not Available Not Available Not Available ropinirole 0.5 mg tablet 08/02 completed Not Available Not Available Not Available misoprostol 200 mcg tablet active Not Available Not Available Not Available aspirin 81 mg chewable tablet active Not Available Not Available Not Available folic acid 1 mg tablet active Not Available Not Available Not Available montelukast 10 mg tablet Take 1 tablet every day by oral route. active Not Available Not Available No t Available dexamethaso ne sodium phosphate 10 mg/mL injection solution Take 10 mL by injection route. 2017 active Not Available Not Available Not Avai lable fluticasone propionate 50 mcg/actuati on nasal spray,suspe nsion 08/02 completed Not Available Not Available Not Available sertraline 50 mg tablet active Not Available Not Available Not Available dicyclomine 10 mg capsule 08/02 completed Not Available Not Available Not Available amoxicillin 875 mg-potassiu m clavulanate 125 mg tablet 08/02 completed Not Available Not Available Not Available losartan 100 mg-hydrochl orothiazide 12.5 mg tablet active Not Available Not Available Not Available Zoloft active Not Available Not Availa ble Not Available iron active Not Available Not Availa ble Not Available Bentyl active Not Available Not Availa ble Not Available ASA-acetami nophen-sali cyl-caff active Not Available Not Available Not Available MoviPrep 100 gram-7.5 gram-2.691 gram oral powder packet 08/02 completed Not Available Not Available Not Available Rosalba Allergy active Not Available Not Available Not Available Trokendi XR 50 mg capsule, extended release 08/02 completed Not Available Not Available Not Available Trokendi XR 100 mg capsule, extended release 08/02 completed Not Available Not Available Not Available Vitals Date Recorded Body weight Body mass index (BMI) Body height Body temperature Heart rate Systolic And Diastolic Provider Name and Address Organization Details Last Updated DateTime 8 722285. 38 g 42.4 kg/m2 160.02 cm 98.1 [degF] 74 /min 126/78 mm[Hg] Aliza Smith [facility] 8 11:16:28 Social History Question Answer Notes LastModified by Organizat ion Details LastModified Time Tobacco Smoking Status Never Smoker Alizayesy Smith [facility] 08/02/2018 11:10:30 What Was The Date Of Your Most Recent Tobacco Screening? 08/02/2018 Information n ot available 10/23/2019 Sex: Unknown Functional Status Question Answer Note LastModified by Organization D etails LastModified Time What is your level of alcohol consumption? None [email or web address] Information not available 08/02/2018 Mental Status None recorded. Family History Relationship Description Onset Age of this Age Resolved Age Notes LastModified by Organization Details LastModified Time Father Hypertensive disorder [email or web address] Not available 2017 11:10:15 Father Diabetes mellitus [email or web address] Not available 2017 11:10:23 Mother Hypertensive disorder [email or web address] Not available 2017 11:10:15 Medical History Condition Response Depression Y Anesthesia Complications N Anxiety Disorder Y Migraines Y Anemia Y Ulcers Y Diabetes N Bleeding Disorder N Hypertension Y Gynecological HistoryNo gynecological history recorded. Obstetrics History GPAL:G 0 P 0 0 0 0 Past Encounters Encounter ID Performer Location Encounter Start Date Encounter Closed Date Diagnosis/Indication Diagnosis SNOMED-CT Code Diagnosis ICD10 Code Diagnosis IMO Codes Diagnosis Note [id number] TONG PATRICIA [place] [facility] [address] [place] [address] 08/02/2018 10:43:58 08/02/2018 12:14:12 Right conductive hearing loss 5660683715 109 H90.11 Otalgia of right ear 378 7810929 701162 H92.01 Dysfunctio n of eustachian tube 14056254 H69.93 Chronic rhinitis 1195393 6 J31.0 Nasal mucosa dry 8279855 2 J34.89 [id number] ERNESTINA HNAD [place] [facility] [address] [place] [address] 08/02/2018 11:19:05 08/02/2018 11:42:47 Right conductive hearing loss 4718038559 109 H90.11 Otalgia of right ear 682 9191844 224806 H92.01 Health Concerns Section Related Observation LastModified by Organization Detai ls LastModified Time None Recorded Concern Status LastModified by Organization Details LastModified Time None Recorded Advance Directives Directive None Recorded Payers Insurance Date Sequence Insurance Name Policy Number Policy Mcclure Covered Member ID Mcclure Member ID Guarantor Name 07/30/2020 1 TELLO [id number] Rocky Rocha [id number] Rocky Rocha Notes Date Note Type Note Provider Name and Address Organization Details Recorded Time 08/02/2018 text/html Rocky comes in today for an evaluation of her ears. Rocky has been experiencing fluid behind her ears over the past few months. She has been placed on multiple antibiotics with no relief. Rocky is able to auto inflate her ears but she states that they feel full shortly after. Rocky does use flonase regularly. TONG PATRICIA MD [address], [place], [address], [facility] 08/02/2018 12:07:54 OBGyn Episode No OBEpisode recorded.
--- OUTSIDE RECORDS SUMMARY | 2025-07-12 08:07 | XMS_ITS | Encounter Summary ---
Author Organization [facility] Address [address] [place] [id number] Care Team Providers Care Online Journalist Name Role Phone Esther Bauman Primary Care Provider [phone] [phone] Reason for Visit * Reason Onset Date Comments [facility] Encounter Details Date Type Department Care Team (Late st Contact Info) Description 07/24/2024 Telephone [facility] HEMATOLOGY & ONCOLOGY [address] [facility] [address] [place] [address] System, [place] [address] [place] NEW PATIENT Social History Tobacco Use Types Packs/Day Years [...] on file Sexual Orientation Not on file documented as of this encounter Plan of Treatment Upcoming Encounters Date Type Department Care Team (Late st Contact Info) Description 11/13/2025 9:00 AM EDT Office Visit [facility] RHEUMATOLOGY [address] [facility] [address] [place] [address] Jacques Cartwright MD [address] [facility] [address] [place] [address] documented as of this encounter Visit Diagnoses Not on filedocumented in this encounter Care Teams Online Journalist Relationship Specialty Start Date End Date Esther Bauman DO [facility] [place] [address] PCP - General Family Medicine 03/15/24 documented as of this encounter
[2025-07-12 08:30] VITALS: BP 121/72; PULSE 84; RESP 17; O2SAT 99
[2025-07-12] MEDS: IRON SUCROSE COMPLEX 200 MG in 0.9 % SODIUM CHLORIDE 100 ML 220 MG IV (08:30)
[2025-07-12 09:00] VITALS: BP 114/54; PULSE 85; RESP 16
== END 2025-07-12 23:59 | disposition home or self-care (01) ==
LOC: INF 08:04
PROVIDERS: PCP Family Medicine; Visit Provider Internal Medicine Medical Oncology
DX: D50.9 Iron deficiency anemia, unspecified (principal)
CPT/HCPCS: 96365; J1756

== ENCOUNTER 2025-07-19 08:07 | Outpatient (CLI) | payer BC, SELFPAY ==
--- OUTSIDE RECORDS SUMMARY | 2025-07-19 08:09 | XMS_ITS | Data Portability ---
Author Organization [facility] Address [address] [facility] [address] [place] [address] Assessment No assessment recorded. Plan of Treatment [...] By Organization Details Last Modified Time 08/02/2018 [id number] eustachian tube problems: care instructions rvanmetre Not [...] Tympanogram completed JENNY RIDDLE, AUD [address] [place], [address], [facility] 08/02/2018 11:37:40 8 Audiogram completed JENNY RIDDLE, AUD [address] [place], [address], [facility] 08/02/2018 11:37:39 8 Audiogram completed Julienantonyarlin [place] [facility] 08/02/2018 11:51:35 splenectomy completed Aliza Smith [facility] 08/02/2018 11:10:59 Imaging Results None [...] Address Organization Details Last Updated DateTime 8 839440. 38 g 42.4 kg/m2 160.02 cm 98.1 [degF] 74 /min 126/78 mm[Hg] Aliza Smith [facility] 8 11:16:28 Social History Question Answer Notes LastModified by Organizat ion Details LastModified Time Tobacco Smoking Status Never Smoker Alizayesy Smith [facility] 08/02/2018 11:10:30 What Was The Date Of Your Most Recent Tobacco Screening? 08/02/2018 Information n ot available 10/23/2019 Sex: Unknown Functional Status Question Answer Note LastModified by Organization D etails LastModified Time What is your level of alcohol consumption? None [email or web address] Information not available 08/02/2018 Mental Status None recorded. Family History Relationship Description Onset Age of this Age Resolved Age Notes LastModified by Organization Details LastModified Time Father Hypertensive disorder [email or web address] Not available 2017 11:10:15 Father Diabetes mellitus [email or web address] Not available 2017 11:10:23 Mother Hypertensive disorder [email or web address] Not available 2017 11:10:15 Medical History Condition Response Anxiety Disorder Y Diabetes N Bleeding Disorder N Anemia Y Anesthesia Complications N Ulcers Y Migraines Y Hypertension Y Depression Y Gynecological HistoryNo gynecological history recorded. Obstetrics History GPAL:G 0 P 0 0 0 0 Past Encounters Encounter ID Performer Location Encounter Start Date Encounter Closed Date Diagnosis/Indication Diagnosis SNOMED-CT Code Diagnosis ICD10 Code Diagnosis IMO Codes Diagnosis Note [id number] TONG PATRICIA [place] [facility] [address] [place] [address] 08/02/2018 10:43:58 08/02/2018 12:14:12 Right conductive hearing loss 8060743410 109 H90.11 Otalgia of right ear 190 4766876 579357 H92.01 Dysfunctio n of eustachian tube 45441044 H69.93 Chronic rhinitis 8215633 6 J31.0 Nasal mucosa dry 3817104 2 J34.89 [id number] ERNESTINA HAND [place] [facility] [address] [place] [address] 08/02/2018 11:19:05 08/02/2018 11:42:47 Right conductive hearing loss 3297134309 109 H90.11 Otalgia of right ear 339 3518219 961248 H92.01 Health Concerns Section Related Observation LastModified by Organization Detai ls LastModified Time None Recorded Concern Status LastModified by Organization Details LastModified Time None Recorded Advance Directives Directive None Recorded Payers Insurance Date Sequence Insurance Name Policy Number Policy Mcclure Covered Member ID Mcclure Member ID Guarantor Name 07/30/2020 1 TELLO [id number] Rocky Rocha [id number] Rocky Rocha Notes Date Note Type [...] regularly. TONG PATRICIA MD [address], [place], [address], [facility] 08/02/2018 12:07:54 OBGyn Episode No OBEpisode recorded.
--- OUTSIDE RECORDS SUMMARY | 2025-07-19 08:09 | XMS_ITS | Clinical Summary ---
Author Organization [facility] Address [address] [place] [address] Care Team Providers Care Social Welfare Research Worker Name Role Phone Esther Bauman Primary Care Provider [phone] [phone] Allergies No known active allergies Social History [...] Description 11/13/2025 9:00 AM EDT Office Visit [facility] RHEUMATOLOGY [address] [facility] [address] [place] [address] Jacques Cartwright MD [address] [facility] [address] [place] [address] Health Maintenance Due Date Last [...] patient's age to complete this topic Insurance [facility] PPO Care Teams Social Welfare Research Worker Relationship Specialty Start Date End Date Esther Bauman DO [address] [place] [address] PCP - General Family Medicine 03/15/24
--- OUTSIDE RECORDS SUMMARY | 2025-07-19 08:10 | XMS_ITS | Encounter Summary ---
Author Organization [facility] Address [address] [place] [id number] Care Team Providers Care Order Filler Name Role Phone Esther Bauman Primary Care Provider [phone] [phone] Reason for Visit * Reason Onset Date Comments [facility]24 Encounter Details Date Type Department Care Team (Late st Contact Info) Description 07/24/2024 Telephone [facility] HEMATOLOGY & ONCOLOGY [address] [facility] [address] [place] [address] System, [place] [address] [place] NEW PATIENT Social History Tobacco Use Types [...] Description 11/13/2025 9:00 AM EDT Office Visit [facility] RHEUMATOLOGY [address] [facility] [address] [place] [address] Jacques Cartwright MD [address] [facility] [address] [place] [address] documented as of this encounter Visit Diagnoses Not on filedocumented in this encounter Care Teams Order Filler Relationship Specialty Start Date End Date Esther Bauman DO [facility] [address] PCP - General Family Medicine 03/15/24 documented as of this encounter
[2025-07-19] MEDS: IRON SUCROSE COMPLEX 200 MG in 0.9 % SODIUM CHLORIDE 100 ML 220 MG IV (08:28)
[2025-07-19 08:30] VITALS: BP 137/77; PULSE 85; RESP 16
[2025-07-19 09:05] VITALS: BP 125/64; PULSE 76; RESP 16
== END 2025-07-19 23:59 | disposition home or self-care (01) ==
LOC: INF 08:08
PROVIDERS: PCP Family Medicine; Visit Provider Internal Medicine Medical Oncology
DX: D50.9 Iron deficiency anemia, unspecified (principal)
CPT/HCPCS: 96365; J1756

== ENCOUNTER 2025-07-26 07:59 | Outpatient (CLI) | payer BC, SELFPAY ==
--- OUTSIDE RECORDS SUMMARY | 2025-07-26 08:01 | XMS_ITS | Encounter Summary ---
Author Organization [facility] Address [address] [place] [address] Care Team Providers Care Regulatory Law Specialist Name Role Phone Esther Bauman Primary Care Provider [phone] [phone] Reason for Visit * Reason Onset Date Comments [facility] Encounter Details Date Type Department Care Team (Late st Contact Info) Description 07/24/2024 Telephone [facility] HEMATOLOGY & ONCOLOGY [address] [facility] [address] [place] [address] System, [place] [address] [place] NEW PATIENT Social History Tobacco Use Types [...] Description 11/13/2025 9:00 AM EDT Office Visit [facility] RHEUMATOLOGY [address] [facility] [address] [place] [address] Jacques Cartwright MD [address] [facility] [address] [place] [address] documented as of this encounter Visit Diagnoses Not on filedocumented in this encounter Care Teams Regulatory Law Specialist Relationship Specialty Start Date End Date Esther Bauman DO [facility] [place] [address] PCP - General Family Medicine 03/15/24 documented as of this encounter
--- OUTSIDE RECORDS SUMMARY | 2025-07-26 08:01 | XMS_ITS | Data Portability ---
Author Organization [facility] Address [address] [facility] [address] [place] [address] Assessment No assessment recorded. Plan of Treatment [...] By Organization Details Last Modified Time 08/02/2018 [id number] eustachian tube problems: care instructions rvanmetre Not [...] Tympanogram completed JENNY RIDDLE, AUD [address] [place], [address], [facility] 08/02/2018 11:37:40 8 Audiogram completed JENNY RIDDLE, AUD [address] [place], [address], [facility] 08/02/2018 11:37:39 8 Audiogram completed Julienantonyarlin [place] [facility] 08/02/2018 11:51:35 splenectomy completed Aliza Smith [facility] 08/02/2018 11:10:59 Imaging Results None recorded. Procedure [...] Address Organization Details Last Updated DateTime 8 295127. 38 g 42.4 kg/m2 160.02 cm 98.1 [degF] 74 /min 126/78 mm[Hg] Aliza Smith [facility] 8 11:16:28 Social History Question Answer Notes LastModified by Organizat ion Details LastModified Time Tobacco Smoking Status Never Smoker Alizayesy Smith [facility] 08/02/2018 11:10:30 What Was The Date Of Your Most Recent Tobacco Screening? 08/02/2018 Information n ot available 10/23/2019 Sex: Unknown Functional Status Question Answer Note LastModified by Organization D etails LastModified Time What is your level of alcohol consumption? None Information not available 08/02/2018 Mental Status None recorded. Family History Relationship Description Onset Age of this Age Resolved Age Notes LastModified by Organization Details LastModified Time Father Hypertensive disorder [email or web address] Not available 2017 11:10:15 Father Diabetes mellitus [email or web address] Not available 2017 11:10:23 Mother Hypertensive disorder [email or web address] Not available 2017 11:10:15 Medical History Condition Response Depression Y Anxiety Disorder Y Migraines Y Ulcers Y Bleeding Disorder N Anesthesia Complications N Anemia Y Diabetes N Hypertension Y Gynecological HistoryNo gynecological history recorded. Obstetrics History GPAL:G 0 P 0 0 0 0 Past Encounters Encounter ID Performer Location Encounter Start Date Encounter Closed Date Diagnosis/Indication Diagnosis SNOMED-CT Code Diagnosis ICD10 Code Diagnosis IMO Codes Diagnosis Note [id number] TONG PATRICIA MD [place] ENT [address] [place] [address] 08/02/2018 10:43:58 08/02/2018 12:14:12 Right conductive hearing loss 6294655201 109 H90.11 Otalgia of right ear 041 6400306 464973 H92.01 Dysfunctio n of eustachian tube 00363649 H69.93 Chronic rhinitis 0221188 6 J31.0 Nasal mucosa dry 9435662 2 J34.89 [id number] ERNESTINA HAND MD ENT [address] [place] [address] 08/02/2018 11:19:05 08/02/2018 11:42:47 Right conductive hearing loss 8728457528 109 H90.11 Otalgia of right ear 185 6219160 850020 H92.01 Health Concerns Section Related Observation LastModified by Organization Detai ls LastModified Time None Recorded Concern Status LastModified by Organization Details LastModified Time None Recorded Advance Directives Directive None Recorded Payers Insurance Date Sequence Insurance Name Policy Number Policy Mcclure Covered Member ID Mcclure Member ID Guarantor Name 07/30/2020 1 TELLO [id number] Rocky Rocha [id number] Rocky Rocha Notes Date Note Type [...] regularly. TONG PATRICIA MD [address], [place], [address], [facility] 08/02/2018 12:07:54 OBGyn Episode No OBEpisode recorded.
--- OUTSIDE RECORDS SUMMARY | 2025-07-26 08:01 | XMS_ITS | Clinical Summary ---
Author Organization [facility] Address [address] [place] [address] Care Team Providers Care Motor Tester Name Role Phone Esther Bauman Primary Care Provider +1 [phone] Allergies No known active allergies Social History [...] 06/05 Potentially Unsafe Housing Conditions Not on arpil e 06/15/2023 Family and Community Support Answer [...] Description 11/13/2025 9:00 AM EDT Office Visit [facility] RHEUMATOLOGY [address] [facility] [address] [place] [address] Jacques Cartwright MD [address] [facility] [address] [place] [address] Health Maintenance Due Date Last [...] patient's age to complete this topic Insurance [facility] PPO Care Teams Motor Tester Relationship Specialty Start Date End Date Esther Bauman DO [address] [place] [id number] PCP - General Family Medicine 03/15/24
== END 2025-07-26 23:59 | disposition home or self-care (01) ==
LOC: INF 07:59
PROVIDERS: PCP Family Medicine; Visit Provider Internal Medicine Medical Oncology
DX: D50.9 Iron deficiency anemia, unspecified (principal)

== ENCOUNTER 2025-08-23 08:26 | Outpatient (CLI) | payer BC, SELFPAY ==
--- OUTSIDE RECORDS SUMMARY | 2025-08-23 08:31 | XMS_ITS | Clinical Summary ---
Author Organization [facility] Address [address] [place] [address] Care Team Providers Care Financial Center Manager Name Role Phone Esther Bauman Primary Care Provider +1 [phone] Allergies No known active allergies Social History [...] Description 11/13/2025 9:00 AM EDT Office Visit [facility] RHEUMATOLOGY [address] [facility] [address] [place] [address] Jacques Cartwright MD [address] [facility] [address] [place] [address] Health Maintenance Due Date Last [...] patient's age to complete this topic Insurance [facility] PPO Care Teams Financial Center Manager Relationship Specialty Start Date End Date Esther Bauman DO [address] [place] [address] PCP - General Family Medicine 03/15/24
--- OUTSIDE RECORDS SUMMARY | 2025-08-23 08:32 | XMS_ITS | Data Portability ---
Author Organization [facility] Address [address] [facility] [address] [place] [address] Assessment No assessment recorded. Plan of Treatment [...] By Organization Details Last Modified Time 08/02/2018 [id number] eustachian tube problems: care instructions [email or web address] Not [...] Tympanogram completed JENNY RIDDLE, AUD [address] [place], [address], [facility] 08/02/2018 11:37:40 8 Audiogram completed JENNY RIDDLE, AUD [address] [place], [address], [facility] 08/02/2018 11:37:39 8 Audiogram completed Julienantonyarlin Crooka [facility] 08/02/2018 11:51:35 splenectomy completed Aliza Smith [facility] 08/02/2018 11:10:59 Imaging Results None recorded. [...] Address Organization Details Last Updated DateTime 8 957725. 38 g 42.4 kg/m2 160.02 cm 98.1 [degF] 74 /min 126/78 mm[Hg] Aliza Smith [facility] 8 11:16:28 Social History Question Answer Notes LastModified by Organizat ion Details LastModified Time Tobacco Smoking Status Never Smoker Alizayesy Smith [facility] 08/02/2018 11:10:30 What Was The Date Of Your Most Recent Tobacco Screening? 08/02/2018 Information n ot available 10/23/2019 Sex: Unknown Functional Status Question Answer Note LastModified by Organization D etails LastModified Time What is your level of alcohol consumption? None [email or web address] Information not available 08/02/2018 Mental Status None recorded. Family History Relationship Description Onset Age of this Age Resolved Age Notes LastModified by Organization Details LastModified Time Father Hypertensive disorder [email or web address] Not available 2017 11:10:15 Father Diabetes mellitus [email or web address] Not available 2017 11:10:23 Mother Hypertensive disorder [email or web address] Not available 2017 11:10:15 Medical History Condition [...] ICD10 Code Diagnosis IMO Codes Diagnosis Note [id number] TONG PATRICIA MD [place] ENT [address] [place] [address] 08/02/2018 10:43:58 08/02/2018 12:14:12 Right conductive hearing loss 5642991635 109 H90.11 Otalgia of right ear 415 2778938 029070 H92.01 Dysfunctio n of eustachian tube 38256504 H69.93 Chronic rhinitis 8583187 6 J31.0 Nasal mucosa dry 1827888 2 J34.89 [id number] ERNESTINA HAND [place] ENT ILink [address] [place] [address] 08/02/2018 11:19:05 08/02/2018 11:42:47 Right conductive hearing loss 0841907873 109 H90.11 Otalgia of right ear 807 8169319 869623 H92.01 Health Concerns Section Related Observation LastModified by Organization Detai ls LastModified Time None Recorded Concern Status LastModified by Organization Details LastModified Time None Recorded Advance Directives Directive None Recorded Payers Insurance Date Sequence Insurance Name Policy Number Policy Mcclure Covered Member ID Mcclure Member ID Guarantor Name 07/30/2020 1 TELLO [id number] Rocky Rocha [id number] Rocky Rocha Notes Date Note Type [...] regularly. TONG PATRICIA MD [address], [place], [address], [facility] 08/02/2018 12:07:54 OBGyn Episode No OBEpisode recorded.
--- OUTSIDE RECORDS SUMMARY | 2025-08-23 08:32 | XMS_ITS | Encounter Summary ---
Author Organization [facility] Address [address] [place] [id number] Care Team Providers Care Panel Wirer Name Role Phone Esther Bauman Primary Care Provider [phone] [phone] Reason for Visit * Reason Onset Date Comments RACHAEL NEW PATIENT 07/24/2024 Encounter Details Date Type Department Care Team (Late st Contact Info) Description 07/24/2024 Telephone [facility] HEMATOLOGY & ONCOLOGY [address] [facility] [address] [place] [address] System, [place] [address] KIRBY NEW PATIENT Social History Tobacco Use Types [...] Description 11/13/2025 9:00 AM EDT Office Visit [facility] RHEUMATOLOGY [address] [facility] [address] [place] [address] Jacques Cartwright MD [address] [facility] [address] [place] [address] documented as of this encounter Visit Diagnoses Not on filedocumented in this encounter Care Teams Panel Wirer Relationship Specialty Start Date End Date Esther Bauman DO [facility] [place] [address] PCP - General Family Medicine 03/15/24 documented as of this encounter
[2025-08-23 08:47] VITALS: BP 128/71; PULSE 74; RESP 17; O2SAT 100
[2025-08-23] MEDS: IRON SUCROSE COMPLEX 200 MG in 0.9 % SODIUM CHLORIDE 100 ML 220 MG IV (08:47)
[2025-08-23 09:25] VITALS: BP 124/74; PULSE 75; RESP 17
== END 2025-08-23 23:59 | disposition home or self-care (01) ==
LOC: INF 08:30
PROVIDERS: PCP Family Medicine; Visit Provider Internal Medicine Medical Oncology
DX: D50.9 Iron deficiency anemia, unspecified (principal)
CPT/HCPCS: 96365; J1756